=== PATIENT | female | born 1980 | race Caucasian/White ===

== ENCOUNTER 2019-07-21 20:34 | Emergency (ER) | payer SELFPAY ==
[~2019-07-21] VITALS: Ht 165.1 cm; Wt 81.8 kg
[2019-07-21 20:42] VITALS: Ht 165.1 cm; Wt 81.8 kg
[2019-07-21] MEDS ORDERED: VESICARE5 MG PO (20:43)
[2019-07-21] MEDS ORDERED: NEXIUM20 MG PO (20:43)
[2019-07-21 21:59] LABS: APPEARANCE CLEAR (CLEAR); BILIRUBIN NEGATIVE (NEGATIVE); COLOR YELLOW (YELLOW); GLUCOSE NEGATIVE (NEGATIVE); KETONE NEGATIVE (NEGATIVE); NITRITE NEGATIVE (NEGATIVE); PROTEIN NEGATIVE (NEGATIVE); UROBILINOGEN NORMAL (NORMAL)
[2019-07-21] MEDS ORDERED: ZOVIRAX800 MG PO (22:03)
[2019-07-21 22:20] LABS: HCG URINE NEGATIVE (NEGATIVE)
[2019-07-21 23:00] VITALS: BP 118/80
[2019-07-25 21:06] LABS: HSV 1 DNA (PCR) Negative (Negative); HSV 2 DNA (PCR) Negative (Negative)
== END 2019-07-21 23:00 | disposition home or self-care (01) ==
LOC: D.ER 20:34
PROVIDERS: Family Medicine
DX: N89.8 Other specified noninflammatory disorders of vagina (principal)

== ENCOUNTER 2020-03-26 23:31 | Emergency (ER) | payer OTHER ==
[~2020-03-26 23:31] MED LIST: NEXIUM20 MG PO; VESICARE5 MG PO; ZOVIRAX800 MG PO
[2020-03-26 23:45] VITALS: Ht 165.1 cm
[2020-03-26] MEDS ORDERED: IMITREX50 MG PO (23:52)
[2020-03-26] MEDS ORDERED: TRAZODONE HCL150 MG PO (23:52)
[2020-03-26] MEDS ORDERED: PROZAC40 MG PO (23:52)
[2020-03-27 00:14] LABS: HEMATOCRIT 42.4 % (36.0-48.0); HEMOGLOBIN 13.6 g/dL (12-16); LYMPHOCYTES 19.3 % (15-50); MCHC 32.1 g/dL (31.0-37.0); MCV 93.6 fL (80.0-100.0); MEAN PLATELET VOLUME 7.6 fL (7.4-10.4); NEUTROPHILS 76.3 % (40-80); PLATELET COUNT 336 10x3/uL (130-400); RBC 4.53 10x6/uL (4.00-5.40); RDW 13.6 % (11.5-14.5); WBC 10.7 10x3/uL (4.8-10.8)
[2020-03-27 00:23] LABS: CALC OSMOLALITY 275 mosm/kg (275-300); CALCIUM 7.8 mg/dL (8.5-10.1); CARBON DIOXIDE 26.4 mmol/L (21.0-32.0); CHLORIDE - SERUM 103 mmol/L (98-107); CREATININE - SERUM 0.8 mg/dL (0.6-1.3); GLUCOSE 115 mg/dL (74-106); POTASSIUM - SERUM 3.8 mmol/L (3.5-5.1); SODIUM 138 mmol/L (136-145); UREA NITROGEN 10 mg/dL (7-18); eGFR NON AFRICAN AMERICAN 85 mL/min (90-120)
[2020-03-27 00:28] LABS: ALBUMIN 3.8 g/dL (3.4-5.0); ALKALINE PHOSPHATASE 43 U/L (30-120); ALT (SGPT) 19 U/L (10-68); BILIRUBIN - TOTAL 0.13 mg/dL (0.2-1.3); C-REACTIVE PROTEIN 0.8 mg/dL (0.0-0.9); PROTEIN - SERUM 6.8 g/dL (6.4-8.2)
[2020-03-27 01:38] VITALS: BP 134/84
[2020-03-27] MEDS ORDERED: NEURONTIN 300300 MG PO (02:12)
== END 2020-03-27 01:38 | disposition home or self-care (01) ==
LOC: D.ER 23:31
PROVIDERS: Family Medicine
DX: R51 Headache (principal); K21.9 Gastro-esophageal reflux disease without esophagitis; R11.2 Nausea with vomiting, unspecified

== ENCOUNTER → 2020-08-20 08:40 | Outpatient (CLI) | payer OTHER ==
[~2020-08-20 08:40] MED LIST changes: +IMITREX50 MG PO; +NEURONTIN 300300 MG PO; +PROZAC40 MG PO; +TRAZODONE HCL150 MG PO
== END | disposition home or self-care (01) ==
LOC: D.NM 08:40
PROVIDERS: ATTEND Nurse Practitioner Family
DX: R10.11 Right upper quadrant pain (principal)